=== PATIENT | female | born 1985 | race Caucasian/White ===

== ENCOUNTER 2017-01-03 19:27 | Emergency (ER) | payer OTHER ==
[~2017-01-03 19:27] MED LIST: ROBIDM5S PO; SUBO8MIS SL; VENTAER INH; XANA2TAB2 PO; ZITH250T PO
[2017-01-03 19:39] VITALS: BP 116/76; PULSE 122; RESP 20; O2SAT 98
[2017-01-03] MEDS ORDERED: PENI250T PO (20:13)
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
== END 2017-01-03 20:18 | disposition home or self-care (01) ==
LOC: PHEFT 19:27
DX: K04.7 Periapical abscess without sinus (principal); F17.200 Nicotine dependence, unspecified, uncomplicated
CPT/HCPCS: 99283